=== PATIENT | male | born 1960 | race Caucasian/White ===

== ENCOUNTER 2017-12-13 11:52 | Inpatient (IN) ==
[2017-12-13] MEDS ORDERED: Naloxone 0.4 MG/ML INJ IVP PRN (15:07)
--- NOTE | 2017-12-13 15:33 | Internal Med History&Physical ---
<Cammy Thompson - Last Filed: 12/13/17 16:50> Date of Encounter: 12/13/17 Time of Encounter: 15:22 Internal Medicine - H&P: HPI Chief complaint: Left knee pain Admitted From: Hospital to Hospital Transfer (Patient is from [facility]) Plans for Post Hospital Care: Home History of present illness: Mr. Duran is a 57 year old male with history of HTN, lymphadema, COPD, A-fib , obesity, MART, asthma, DJD and enlarged prostate. Patient is here from [facility]. He reports that he has been inpatient at [facility] since Sunday. Apparently on that day he could not get up, so he pressed his life alert button , who sent help for him. He was taken to the ED there and was evaluated for a ? left infected knee. He indicated that he was receiving treatment but decided it would be best for him to come to [place] because many of his providers are here. The heart rate sounds are regular, but will get a baseline ekg. The patient takes coumadin for AFIb, INR was 1.4 today. CBC and BMP ordered at this time. Apparently the patient's knee was aspirated for fluid yesterday. The patient indicated that this procedure relieved a lot of pressure. Spoke with Dr. Fay who was on the nursing unit. Reviewed the old records. Plan for ESR and CRP at this time, while waiting for Left knee asppiration results. Will continue iv rocephin and vancomycin as ordered at [facility]. Last wbc count was 6.3, hgb 10.9, na 140, k was 3.9. I did note that the patient's lactic was slightly elevated at [facility], which was resolved. Past Med Surg Social Fam HX - Past Medical History Medical history: arthritis, atrial fibrillation, COPD, diabetes, hyperlipidemia , hypertension, migraine, renal disease, venous stasis, other Additional medical history: end stage DJD Psychiatric history: anxiety, depression - Past Surgical History Surgical History: non-contributory, appendectomy, cataract, cholecystectomy, knee replacement Additional surgical history: Bilateral knee replacements, L elbow, L shoulder - Social History Smoking Status: Former smoker Smokeless Tobacco Status: No Alcohol use: none, rarely Drug use: none - Family History Mother Adopted: No Family Member Ethnicity: Non- Living Status: Hx Family Cardiac Disorders: Yes Hx Family Respiratory Disorders: No Hx Family Cancer: Yes Hx Family GI Disorders: No Hx Family Endocrine Disorder: No Hx Family Neuromuscular Disorders: No Hx Family Neurologic Disorders: No Hx Family HEENT Disorders: No Hx Family Autoimmune Disorders: Yes Father Family Member Ethnicity: Non- Living Status: Still Living Hx Family Cardiac Disorders: No Hx Family Respiratory Disorders: No Hx Family Cancer: No Hx Family GI Disorders: No Hx Family Endocrine Disorder: No Hx Family Neuromuscular Disorders: No Hx Family Neurologic Disorders: Yes Hx Family HEENT Disorders: No Hx Family Autoimmune Disorders: No Internal Medicine - H&P: Meds Allopurinol [Zyloprim 300 MG] 300 mg PO DAILY 01/10/16 [History] Spironolactone [Aldactone] 50 mg PO DAILY 01/10/16 [History] Acetaminophen [Acetaminophen ER] 1,300 mg PO DAILY PRN 12/13/17 [History] Budesonide/Formoterol 160/4.5 [Symbicort 160/4.5] 2 puff IH BIDR 12/13/17 [ History] Buspirone HCl [Buspar] 15 mg PO BID 12/13/17 [History] Clotrimazole 1% CRM [Lotrimin 1%] 1 appl TP BID 12/13/17 [History] Docusate [Colace] 100 mg PO DAILY 12/13/17 [History] EPINEPHrine [Epipen] 0.3 mg IJ ONCE PRN 12/13/17 [History] Fluticasone Propionate Nasal [Flonase] 1 spray NS DAILY 12/13/17 [History] Furosemide [Lasix] 20 mg PO DAILY 12/13/17 [History] Gabapentin [Neurontin] 300 mg PO BID 12/13/17 [History] Loratadine [Allergy Relief] 10 mg PO DAILY 12/13/17 [History] Losartan/Hydrochlorothiazide [Losartan-Hctz 100-12.5 mg Tab] 1 tab PO DAILY [History] Montelukast [Singulair] 10 mg PO HS 12/13/17 [History] Ondansetron ODT [Zofran ODT] 4 mg SL Q6HR PRN 12/13/17 [History] Polyethylene Glycol 3350 [MiraLAX bowel prep] 17 g PO BID 12/13/17 [History] Pramipexole [Mirapex] 0.25 mg PO DAILY 12/13/17 [History] Tamsulosin [Flomax] 0.4 mg PO DAILY 12/13/17 [History] Warfarin [Coumadin] 6 mg PO MOTUWETHFR 12/13/17 [History] Warfarin [Coumadin] 7.5 mg PO SUSA 12/13/17 [History] 3 Allergy/AdvReac Type Severity Reaction Status Date / Time No Known Allergies Allergy Verified 01/10/16 08:18 All Systems PM: A 10-system review of systems was performed and is negative for pertinent findings except as documented above in the HPI. - Constitutional Constitutional: no chills, no fever(s), no night sweats - EENT Eyes: no change in vision, no discharge, no pain, no photophobia Ears: no ear discharge, no ear pain, no tinnitus Nose, mouth and throat: no dysphagia, no nasal discharge, no neck pain, no sore throat - Cardiovascular Cardiovascular ROS IM: no chest pain, no diaphoresis, no dyspnea, no lightheadedness, no palpitations, no syncope - Respiratory Respiratory: no cough, no dyspnea, no wheezing, no excessive phlegm production - Gastrointestinal Gastrointestinal: no abdominal pain, no diarrhea, no hematemesis, no hematochezia, no melena, no nausea, no vomiting - Musculoskeletal Musculoskeletal ROS IM: limited range of motion (left lower ext-Patient uses a rolling walker), no numbness, no tingling - Integumentary Integumentary IM: erythema, other (Non-healing left knee wound), no rash, no unusual bruising - Neurological Neurological ROS: no confusion, no convulsions, no focal weakness, no numbness, no tingling, no tremor(s) - Hematologic/Lymphatic Hematologic/Lymphatic: no easy bruising - Constitutional Vitals: Temp Pulse Resp BP Pulse Ox 99.5 F 70 16 113/70 95 12/13/17 13:52 12/13/17 13:52 12/13/17 13:52 12/13/17 13:52 12/13/17 13:52 General appearance: Present: A&O X 3, answers questions appropriately - Head Head exam: Present: atraumatic, normocephalic - Eye Eye exam: Present: PERRL, conjuntiva pink, sclera anicteric Pupils: Present: PERRL - Neck Neck exam general surgery: Present: supple, trachea midline. Absent: lymphadenopathy - Respiratory Respiratory exam: Present: decreased breath sounds. Absent: accessory muscle use, rales, rhonchi, wheezes - Cardiovascular Cardiovascular exam: Present: RRR, +S1, +S2. Absent: diastolic murmur, gallop, rubs, systolic murmur - GI/Abdominal GI/Abdominal exam: Present: normal bowel sounds, soft, no peritoneal signs. Absent: distended, tenderness - Extremities Exam Extremities exam: Present: joint swelling (left knee), pedal edema, tenderness, warm, radial pulses palpable and symmetrical. Absent: calf tenderness, cyanotic - Neurological Exam Neurological exam: Present: CN II-XII intact, oriented X3, no focal deficits. Absent: pronater drift, facial droop, speech deficit - Skin Skin exam: Present: dry, intact Internal Med - H&P Results - Labs CBC & Chem 7: 12/13/17 15:51 12/13/17 15:51 - Assessment and plan (1) Infection of left knee Current Visit: Yes Status: Suspected Assessment and plan: Suspected left knee infection. Dr Fay consulted and here to see the patient. Will continue iv rocephin and iv vanco as ordered at [facility]. CRP and ESR Monitor daily cbc and bmp (2) Lymphedema Current Visit: Yes Status: Chronic Assessment and plan: Poor mobility due to lymphedema will order PT/OT consult (3) HTN (hypertension) Current Visit: Yes Status: Chronic Assessment and plan: Bp is controlled Continue home bp medications Qualifiers: Hypertension type: essential hypertension Qualified Code(s): I10 - Essential (primary) hypertension (4) Morbid obesity Current Visit: No Status: Chronic Assessment and plan: nutrition consult Daily weight Monitor daily labs (5) A-fib Current Visit: No Status: Chronic Assessment and plan: Waiting for 12 lead EKG results Coumadin daily Daily INR Qualifiers: Atrial fibrillation type: paroxysmal Qualified Code(s): I48.0 - Paroxysmal atrial fibrillation - Time Spent With Patient Total time spent is greater than 50% in coordination of care (as documented) at patient's floor/unit and/or counseling patient: 25 - 35 minutes <Lupsi Webb - Last Filed: 12/13/17 17:46> Date of Encounter: 12/13/17 Time of Encounter: 15:25 Internal Medicine - H&P: HPI History of present illness: Mr. Duran is a 57 year old male All Systems PM: A 10-system review of systems was performed and is negative for pertinent findings except as documented above in the HPI. - Constitutional Vitals: Temp Pulse Resp BP Pulse Ox 99.5 F 70 16 113/70 95 12/13/17 13:52 12/13/17 13:52 12/13/17 13:52 12/13/17 13:52 12/13/17 13:52 Internal Med - H&P Results - Labs CBC & Chem 7: 12/13/17 15:51 12/13/17 15:51 Labs: Short CBC 12/13/17 Range/Units 15:51 WBC 6.6 (4.3-11.1) K/mcL Hgb 11.3 L (12.9-16.9) g/dL Hct 33.8 L (37.5-50.1) % Plt Count 194 (140-400) K/mcL Neutrophils # 4.5 (1.6-8.9) K/mcL BMP 12/13/17 15:51 Sodium 136 Potassium 4.2 Chloride 104 Carbon Dioxide 25 BUN 13 Creatinine 0.94 Glucose 105 Calcium 8.6 - Impressions ITS Impressions Knee X-Ray 12/13/17 16:20 IMPRESSION: No acute abnormality. D/ / 12/13/2017 17:30:53 Cliff Galvin MD / [facility] Interpreting Provider: Cliff Galvin MD - Attending Attestation I examined this patient and my medical decision-making was reviewed with the Nurse Practitioner, Cammy Thompson. I agree with the documented findings, disposition and treatment plan as described with any changes as documented below. 57-year-old male patient with prior bilateral total knee arthroplasty was sent over from [facility] [place] for post possible left knee septic arthritis. He had been admitted there with pain and swelling involving his left knee. This symptom has been going on intermittently since his surgery. He denies any fevers or chills. He did have arthrocentesis done over there and cell count showed around 130K WBC with neutrophil predominance. Gram stain was negative. Cultures are pending. On examination, patient is awake and alert. In mild distress. Does have increased warmth and swelling over the left knee. No erythema visible. Left knee is more swollen compared to the right. Heart rate is normal. Breath sounds are normal. Regular rhythm. Possible left knee septic arthritis: Continue IV antibiotics. Check ESR CRP. Consult orthopedics and follow recommendations. Essential hypertension: Monitor blood pressure. Continue home medications. Atrial fibrillation: In sinus rhythm currently. On Coumadin for anticoagulation. INR is subtherapeutic. Continue Coumadin. - Assessment and plan (1) Infection of left knee Current Visit: Yes Status: Suspected (2) HTN (hypertension) Current Visit: Yes Status: Chronic Qualifiers: Hypertension type: essential hypertension Qualified Code(s): I10 - Essential (primary) hypertension (3) A-fib Current Visit: No Status: Chronic Qualifiers: Atrial fibrillation type: paroxysmal Qualified Code(s): I48.0 - Paroxysmal atrial fibrillation (4) Morbid obesity Current Visit: No Status: Chronic - Time Spent With Patient Total time spent is greater than 50% in coordination of care (as documented) at patient's floor/unit and/or counseling patient:
[2017-12-13 16:10] LABS: Basophils % 0.5 %; Eosinophils # 0.2 K/mcL (0.0-0.6); Eosinophils % 2.6 %; Hematocrit 33.8 % (37.5-50.1); Hemoglobin 11.3 g/dL (12.9-16.9); Immature Granulocytes % 2.6 % (0-4); Lymphocytes # 1.3 K/mcL (0.6-4.6); Lymphocytes % 19.5 %; Mean Corpuscular HGB Conc 33.4 g/dL (31.6-35.5); Mean Corpuscular Hemoglobin 28.4 pg (28.0-33.3); Mean Corpuscular Volume 84.9 fL (83.0-100.0); Mean Platelet Volume 9.8 fL (9.4-12.4); Monocytes # 0.5 K/mcL (0.0-1.3); Neutrophils # 4.5 K/mcL (1.6-8.9); Platelet Count 194 K/mcL (140-400); Red Blood Count 3.98 M/mcL (4.19-5.50); Red Cell Distribution Width 15.1 % (11.5-14.5); Segmented Neutrophils % 67.8 %
--- NOTE | 2017-12-13 16:25 | Orthopedic Consult Note ---
Date of Encounter: 12/13/17 Time of Encounter: 16:22 History of Present Illness HPI: Mr. Duran is a 57 year old male Status post revision left total knee in 2015. Patient had been seen in my office or Dr. Duran for knee pain had a workup that included a bone scan which was negative for infection and negative for loosening in July 2017. Patient was seen earlier this week in another hospital admitted for possible knee infection. The other facility aspirated the knee the Gram stain was consistent with white cells but no bacteria. 24 hours showed no growth to date in cultures. Patient reports a problem in the back of his knee which was seen in the ER and was told he had a superficial infection there. On exam the patient is morbidly obese Alert and oriented 3 Left lower extremity Well-healed incision Some swelling No erythema We had a long discussion with regards to what has transpired since he saw Dr. Duran, and Dr. Duran's results of negative bone scan. We also reviewed that the aspiration was negative for bacteria on Gram stain and there has been no growth to date. Since the aspiration the patient has been on vancomycin and Rocephin at the other facility. An aspiration at this time would be noncontributory due to the IV antibiotic intervention. We will continue to monitor the results of the cultures at the other facility and make a plan based on these results. We will also order a new x-ray and compare them to his x- rays earlier this year as well as an ESR and CRP. I reviewed this plan and answered all his questions. Past Med Surg Social Fam HX - Past Medical History Medical history: arthritis, atrial fibrillation, COPD, diabetes, hyperlipidemia , hypertension, migraine, renal disease, venous stasis, other Additional medical history: end stage DJD Psychiatric history: anxiety, depression - Past Surgical History Surgical History: non-contributory, appendectomy, cataract, cholecystectomy, knee replacement Additional surgical history: Bilateral knee replacements, L elbow, L shoulder - Social History Smoking Status: Former smoker Smokeless Tobacco Status: No Alcohol use: none, rarely Drug use: none - Family History Mother Adopted: No Family Member Ethnicity: Non- Living Status: Hx Family Cardiac Disorders: Yes Hx Family Respiratory Disorders: No Hx Family Cancer: Yes Hx Family GI Disorders: No Hx Family Endocrine Disorder: No Hx Family Neuromuscular Disorders: No Hx Family Neurologic Disorders: No Hx Family HEENT Disorders: No Hx Family Autoimmune Disorders: Yes Father Family Member Ethnicity: Non- Living Status: Still Living Hx Family Cardiac Disorders: No Hx Family Respiratory Disorders: No Hx Family Cancer: No Hx Family GI Disorders: No Hx Family Endocrine Disorder: No Hx Family Neuromuscular Disorders: No Hx Family Neurologic Disorders: Yes Hx Family HEENT Disorders: No Hx Family Autoimmune Disorders: No Medications and Allergies Allopurinol [Zyloprim 300 MG] 300 mg PO DAILY 01/10/16 [History] Spironolactone [Aldactone] 50 mg PO DAILY 01/10/16 [History] Acetaminophen [Acetaminophen ER] 1,300 mg PO DAILY PRN 12/13/17 [History] Budesonide/Formoterol 160/4.5 [Symbicort 160/4.5] 2 puff IH BIDR 12/13/17 [ History] Buspirone HCl [Buspar] 15 mg PO BID 12/13/17 [History] Clotrimazole 1% CRM [Lotrimin 1%] 1 appl TP BID 12/13/17 [History] Docusate [Colace] 100 mg PO DAILY 12/13/17 [History] EPINEPHrine [Epipen] 0.3 mg IJ ONCE PRN 12/13/17 [History] Fluticasone Propionate Nasal [Flonase] 1 spray NS DAILY 12/13/17 [History] Furosemide [Lasix] 20 mg PO DAILY 12/13/17 [History] Gabapentin [Neurontin] 300 mg PO BID 12/13/17 [History] Loratadine [Allergy Relief] 10 mg PO DAILY 12/13/17 [History] Losartan/Hydrochlorothiazide [Losartan-Hctz 100-12.5 mg Tab] 1 tab PO DAILY [History] Montelukast [Singulair] 10 mg PO HS 12/13/17 [History] Ondansetron ODT [Zofran ODT] 4 mg SL Q6HR PRN 12/13/17 [History] Polyethylene Glycol 3350 [MiraLAX bowel prep] 17 g PO BID 12/13/17 [History] Pramipexole [Mirapex] 0.25 mg PO DAILY 12/13/17 [History] Tamsulosin [Flomax] 0.4 mg PO DAILY 12/13/17 [History] Warfarin [Coumadin] 6 mg PO MOTUWETHFR 12/13/17 [History] Warfarin [Coumadin] 7.5 mg PO SUSA 12/13/17 [History] 3 Allergy/AdvReac Type Severity Reaction Status Date / Time No Known Allergies Allergy Verified 01/10/16 08:18 All Systems Reviewed: The remainder of the systems were reviewed and are negative Physical Exam - Constitutional Vitals: Temp Pulse Resp BP Pulse Ox 99.5 F 70 16 113/70 95 12/13/17 13:52 12/13/17 13:52 12/13/17 13:52 12/13/17 13:52 12/13/17 13:52 Results - Labs Result Diagrams: 12/13/17 15:51 Labs: Abnormal lab results RBC 3.98 M/mcL (4.19-5.50) L 12/13/17 15:51 Hgb 11.3 g/dL (12.9-16.9) L 12/13/17 15:51 Hct 33.8 % (37.5-50.1) L 12/13/17 15:51 RDW 15.1 % (11.5-14.5) H 12/13/17 15:51 H & H 12/13/17 Range/Units 15:51 Hgb 11.3 L (12.9-16.9) g/dL Hct 33.8 L (37.5-50.1) % All other labs normal. Consult Discharge Plan - Plan Referrals: NONE,PCP [Primary Care Provider] -
[2017-12-13 16:31] LABS: BUN/Creatinine Ratio 14 (6-26); Blood Urea Nitrogen 13 mg/dL (6-20); Calcium 8.6 mg/dL (8.6-10.3); Carbon Dioxide 25 mEq/L (23-29); Chloride 104 mEq/L (98-107); Glucose 105 mg/dL (70-105); Osmolality,Calculated 282 (280-300); Potassium 4.2 mEq/L (3.5-5.1); Sodium 136 mEq/L (136-145); eGFR For African Americans > 60 (> 60); eGFR For Non-African Americans > 60 (> 60)
[2017-12-13 16:44] LABS: C-Reactive Protein 225 mg/L (Less than 10)
[2017-12-13] MEDS ORDERED: Ondansetron ODT 4 MG TAB.RAPDIS SL PRN (16:45)
[2017-12-13] MEDS ORDERED: ACETAMINOPHEN 1300 MG PO PRN (16:45)
[2017-12-13] MEDS ORDERED: Vancomycin 1 EACH in 0.9 % Sodium Chloride 250 ML IVPB SCH (17:00)
[2017-12-13 18:04] LABS: Vancomycin,Random 14 mcg/mL
[2017-12-13] MEDS: *HR* Warfarin 3 MG TABLET PO SCH (18:15)
[2017-12-13] MEDS: Budesonide/Formoterol 160/4.5 MDI IH SCH (20:14)
[2017-12-13] MEDS: Gabapentin 300 MG CAPSULE PO SCH (20:48)
[2017-12-13] MEDS: Clotrimazole 1% CRM 15 GM TUBE TP SCH (20:49)
[2017-12-13] MEDS: Benzonatate 100 MG CAPSULE PO PRN (23:11)
[2017-12-14 01:23] LABS: Basophils % 0.5 %; Eosinophils # 0.2 K/mcL (0.0-0.6); Eosinophils % 3.5 %; Hematocrit 33.2 % (37.5-50.1); Immature Granulocytes % 3.7 % (0-4); Lymphocytes # 1.2 K/mcL (0.6-4.6); Lymphocytes % 20.2 %; Mean Corpuscular HGB Conc 33.1 g/dL (31.6-35.5); Mean Corpuscular Hemoglobin 28.2 pg (28.0-33.3); Mean Corpuscular Volume 85.1 fL (83.0-100.0); Mean Platelet Volume 9.7 fL (9.4-12.4); Monocytes # 0.4 K/mcL (0.0-1.3); Monocytes % 6.3 %; Platelet Count 196 K/mcL (140-400); Red Cell Distribution Width 15.1 % (11.5-14.5); Segmented Neutrophils % 65.8 %
[2017-12-14 01:32] LABS: Prothrombin Time 22.9 Seconds (9.4-12.1)
[2017-12-14 01:40] LABS: BUN/Creatinine Ratio 15 (6-26); Blood Urea Nitrogen 15 mg/dL (6-20); Calcium 8.7 mg/dL (8.6-10.3); Carbon Dioxide 24 mEq/L (23-29); Chloride 104 mEq/L (98-107); Glucose 131 mg/dL (70-105); Osmolality,Calculated 285 (280-300); Potassium 4.3 mEq/L (3.5-5.1); Sodium 136 mEq/L (136-145); eGFR For African Americans > 60 (> 60); eGFR For Non-African Americans > 60 (> 60)
[2017-12-14 01:42] LABS: Platelet Estimate Normal (Normal); Reactive Lymphocytes Present (Not Present)
--- NOTE | 2017-12-14 06:43 | Orthopedics Progress Note ---
Date of Encounter: 12/14/17 Time of Encounter: 06:41 Subjective Interval history: Patient seen this morning lab values reviewed patient is significantly elevated ESR and CRP. This is concerning for infection. On exam the patient is doing much better reports significant less discomfort patient is able to actively move the knee without pain. Physical exam shows no erythema no significant change and swelling. Based on the patient's overall situation, we will wait for cultures to result to identify there is a infected left total knee. Recommendation is to continue IV antibiotics until cultures result if patient continues to improve his significant medical comorbidities and the fact that this would be a secondary revision ideally situation would be to treat this nonoperatively. Objective Vital signs: Vital Signs Temp Pulse Resp BP Pulse Ox 12/14/17 06:32 98.2 F 129 18 120/74 93 12/14/17 04:04 98.2 F 93 16 130/82 95 12/13/17 22:35 98.7 F 66 18 121/62 95 12/13/17 21:20 98 12/13/17 20:15 16 96 12/13/17 19:21 99.5 F 72 18 128/78 98 12/13/17 13:52 99.5 F 70 16 113/70 95 Intake and Output 12/13/17 12/13/17 12/14/17 15:59 23:59 07:59 Intake Total 0 / 0 1280 / 1280 150 / 150 Output Total 400 / 400 0 / 0 575 / 575 Balance -400 / -400 1280 / 1280 -425 / -425 Intake: IV Fluids 500 / 500 Vancocin 1,750 MG In 0.9 % 500 / 500 Sodium Chloride 500 ML @ 333.3 mls/hr IVPB Q12H [facility]ANTAL Rx#: [id number] Oral 0 / 0 780 / 780 150 / 150 Output: Urine 400 / 400 0 / 0 575 / 575 Other: Meal Dinner Percent of Meal Consumed 100% # Voids 1 Weight 183.5 kg 179.5 kg Blood Glucose* 91 Patient Weight 12/14/17 23:59 Weight 179.5 kg - Labs CBC & BMP: 12/14/17 00:54 12/14/17 00:54 Labs: Abnormal lab results RBC 3.90 M/mcL (4.19-5.50) L 12/14/17 00:54 Hgb 11.0 g/dL (12.9-16.9) L 12/14/17 00:54 Hct 33.2 % (37.5-50.1) L 12/14/17 00:54 RDW 15.1 % (11.5-14.5) H 12/14/17 00:54 Reactive Lymphocytes Present (Not Present) A 12/14/17 00:54 ESR >= 130 mm/hr (0-10) H 12/13/17 15:51 PT 22.9 Seconds (9.4-12.1) H 12/14/17 00:54 Glucose 131 mg/dL (70-105) H 12/14/17 00:54 C-Reactive Protein 225 mg/L (Less than 10) H 12/13/17 15:51 Consult Discharge Plan - Plan Referrals: NONE,PCP [Primary Care Provider] -
[2017-12-14] MEDS: Budesonide/Formoterol 160/4.5 MDI IH SCH ×2 (07:40→20:30)
[2017-12-14] MEDS: hydroCHLOROthiazide 25 MG TABLET PO SCH (08:18)
[2017-12-14] MEDS: Gabapentin 300 MG CAPSULE PO SCH ×2 (08:18→20:20)
[2017-12-14] MEDS: Furosemide 20 MG TABLET PO SCH (08:18)
[2017-12-14] MEDS: Loratadine 10 MG TABLET PO SCH (08:18)
[2017-12-14] MEDS: Fluticasone Propionate Nasal 50 MCG/SPRAY BOTTLE NS SCH (08:19)
[2017-12-14] MEDS: Clotrimazole 1% CRM 15 GM TUBE TP SCH ×2 (08:19→20:20)
[2017-12-14] MEDS: cefTRIAXone 2,000 MG in Water for inj. (sterile) 20 ML 20 ML IVP SCH (08:20)
[2017-12-14] MEDS ORDERED: NON-FORMULARY MEDICATION 1 EACH EACH (Losartan/Hydrochlorothiazide [Losartan-Hctz 100-12.5 PO SCH (09:00)
--- NOTE | 2017-12-14 09:30 | Internal Med Progress Note ---
Date of Encounter: 12/14/17 Time of Encounter: 09:27 - Assessment and plan (1) Infection of left knee Current Visit: Yes Status: Acute Assessment and plan: Still with significant pain with ambulation. Orthopedics consulted; appreciate input. No plan for surgery at this time. Continue IV vancomycin, dosed by pharmacy, and IV rocephin. Follow up on final cultures. PT/OT consulted. (2) Morbid obesity Current Visit: Yes Status: Chronic Assessment and plan: Counselled on lifestyle modifications. (3) A-fib Current Visit: Yes Status: Chronic Assessment and plan: Continue home medications. Qualifiers: Atrial fibrillation type: paroxysmal Qualified Code(s): I48.0 - Paroxysmal atrial fibrillation (4) HTN (hypertension) Current Visit: Yes Status: Chronic Assessment and plan: Continue home medications. Qualifiers: Hypertension type: essential hypertension Qualified Code(s): I10 - Essential (primary) hypertension (5) DVT prophylaxis Current Visit: Yes Status: Acute Assessment and plan: Continue home coumadin managed by pharmacy. - Time Spent With Patient Total time spent is greater than 50% in coordination of care (as documented) at patient's floor/unit and/or counseling patient: less than 15 minutes - Subjective Interval history: Patient had no acute events overnight. He is sitting up in chair today working with PT/OT. He states that he is having pain in left knee while ambulating. He denies fever, chills, chest pain, SOB, nausea, vomiting, or abdominal pain. He has no other complaints at this time. - Constitutional Vitals: Temp Pulse Resp BP Pulse Ox 98.2 F 129 20 120/74 94 12/14/17 06:32 12/14/17 06:32 12/14/17 07:40 12/14/17 06:32 12/14/17 07:40 General appearance: Present: cooperative, A&O X 3, morbidly obese, pleasant, no acute distress, answers questions appropriately - Respiratory Respiratory exam: Present: CTAB. Absent: accessory muscle use, rales, rhonchi, wheezes Additional comments: Normal WOB - Cardiovascular Cardiovascular exam: Present: RRR, +S1, +S2. Absent: diastolic murmur, gallop, rubs, systolic murmur Additional comments: Trace L knee edema, otherwise no BLE edema - GI/Abdominal GI/Abdominal exam: Present: normal bowel sounds, soft. Absent: distended, hepatomegaly, mass, splenomegaly, tenderness - Extremities Exam Additional comments: Left knee with trace edema, no erythema, no warmth, no TTP, surgical scar present; left knee with no edema, no erythema, no TTP, surgical scar present - Psychiatric Psychiatric exam: Present: normal affect, normal mood. Absent: agitated, anxious, depressed - Skin Skin exam: Present: dry, intact, warm. Absent: cyanosis, rash Internal Medicine: Result - Labs CBC & Chem 7: 12/14/17 00:54 12/14/17 00:54 Labs: Short CBC 12/13/17 12/14/17 Range/Units 15:51 00:54 WBC 6.6 6.0 (4.3-11.1) K/mcL Hgb 11.3 L 11.0 L (12.9-16.9) g/dL Hct 33.8 L 33.2 L (37.5-50.1) % Plt Count 194 196 (140-400) K/mcL Neutrophils # 4.5 4.0 (1.6-8.9) K/mcL BMP 12/13/17 12/14/17 15:51 00:54 Sodium 136 136 Potassium 4.2 4.3 Chloride 104 104 Carbon Dioxide 25 24 BUN 13 15 Creatinine 0.94 1.01 Glucose 105 131 H Calcium 8.6 8.7 - ABG Interpretation ABG results: PT/INR, D-dimer PT 22.9 Seconds (9.4-12.1) H 12/14/17 00:54 - Impressions Impressions Knee X-Ray 12/13/17 16:20 IMPRESSION: No acute abnormality. D/ / 12/13/2017 17:30:53 Cliff Galvin MD / [facility] Interpreting Provider: Cliff Galvin MD Consult Discharge Plan - Plan Referrals: NONE,PCP [Primary Care Provider] -
[2017-12-14] MEDS: Benzonatate 100 MG CAPSULE PO PRN ×2 (09:47→20:27)
--- NOTE | 2017-12-14 11:53 | Event Note ---
Date of Encounter: 12/14/17 Time of Encounter: 11:50 Final culture results from outside facility reviewed: NO GROWTH Plan: Continue IV antibiotics while in the hospital, patient continues to improve. Per - Due to significant medical comorbidities and the fact that this would be a secondary revision, ideally situation would be to treat this nonoperatively May require prolonged course of IV antibiotics and monitoring of CRP/ESR weekly for resolution of cellulitis. Follow up appt scheduled for next week and the following week. Appts faxed to [facility]
[2017-12-14] MEDS: *HR* OxyCODONE Immed Rel 5 MG TABLET PO PRN (13:03)
--- NOTE | 2017-12-14 15:46 | Electrocardiograph Report ---
[address] [address] Test Date: 2017-12-13 Pat Name: Francisco Duran Department: 114 Room: [facility] Gender: M First Officer: AT : 1960 Requested By: Cammy Thompson Order Number: [id number] Reading MD: Devyn Thornton Measurements Intervals [place] Rate: 70 P: 18 ME: 172 QRS: -19 QRSD: 108 T: 44 QT: 374 QTc: 395 Interpretive Statements SINUS RHYTHM Electronically Signed On 12-14-2017 15:44:43 EDT by Devyn Thornton
[2017-12-14] MEDS: *HR* Warfarin 3 MG TABLET PO SCH (16:57)
[2017-12-14] MEDS ORDERED: Warfarin perPT PO PRN (18:00)
[2017-12-15 01:17] LABS: Hematocrit 34.2 % (37.5-50.1); Hemoglobin 11.3 g/dL (12.9-16.9); Mean Corpuscular Hemoglobin 28.3 pg (28.0-33.3); Mean Corpuscular Volume 85.5 fL (83.0-100.0); Mean Platelet Volume 9.7 fL (9.4-12.4); Platelet Count 225 K/mcL (140-400)
[2017-12-15 01:24] LABS: INR 2.5; Prothrombin Time 28.3 Seconds (9.4-12.1)
[2017-12-15 01:33] LABS: BUN/Creatinine Ratio 20 (6-26); Blood Urea Nitrogen 18 mg/dL (6-20); Calcium 9.2 mg/dL (8.6-10.3); Carbon Dioxide 22 mEq/L (23-29); Chloride 102 mEq/L (98-107); Glucose 146 mg/dL (70-105); Osmolality,Calculated 283 (280-300); Potassium 3.9 mEq/L (3.5-5.1); Sodium 134 mEq/L (136-145); eGFR For African Americans > 60 (> 60); eGFR For Non-African Americans > 60 (> 60)
[2017-12-15 01:44] LABS: Eosinophils # 0.2 K/mcL (0.0-0.6); Lymphocytes # 1.9 K/mcL (0.6-4.6); Monocytes # 0.3 K/mcL (0.0-1.3); Neutrophils # 5.4 K/mcL (1.6-8.9)
[2017-12-15 01:45] LABS: Platelet Estimate Normal (Normal)
[2017-12-15] MEDS: *HR* OxyCODONE Immed Rel 5 MG TABLET PO PRN (02:24)
[2017-12-15] MEDS: Budesonide/Formoterol 160/4.5 MDI IH SCH ×2 (08:11→20:44)
[2017-12-15] MEDS: Loratadine 10 MG TABLET PO SCH (08:57)
[2017-12-15] MEDS: Gabapentin 300 MG CAPSULE PO SCH ×2 (08:57→20:17)
[2017-12-15] MEDS: cefTRIAXone 2,000 MG in Water for inj. (sterile) 20 ML 20 ML IVP SCH (08:58)
[2017-12-15] MEDS: Furosemide 20 MG TABLET PO SCH (08:58)
[2017-12-15] MEDS: hydroCHLOROthiazide 25 MG TABLET PO SCH (08:59)
[2017-12-15] MEDS: Clotrimazole 1% CRM 15 GM TUBE TP SCH ×2 (09:13→20:19)
[2017-12-15] MEDS: Fluticasone Propionate Nasal 50 MCG/SPRAY BOTTLE NS SCH (09:35)
--- NOTE | 2017-12-15 09:46 | Internal Med Progress Note ---
Date of Encounter: 12/15/17 Time of Encounter: 09:44 - Assessment and plan (1) Infection of left knee Current Visit: Yes Status: Acute Assessment and plan: He still has pain/stiffness of knee, minimally improved. Joint aspiration culture negative from OSH. Orthopedics consulted; appreciate input. They feel this is likely cellulitis. They recommend course of IV antibiotics and ESR/CRP monitoring. He will likely need an extended course of IV antibiotics after discharge. I have consulted ID and SW to help set this up. He wants to go to acute inpatient rehab. PT/OT recommend rehab. Continue IV vancomycin, dosed by pharmacy, and IV rocephin. BLE dressing per wound care. (2) Morbid obesity Current Visit: Yes Status: Chronic Assessment and plan: Counselled on lifestyle modifications. (3) A-fib Current Visit: Yes Status: Chronic Assessment and plan: Continue home medications. Qualifiers: Atrial fibrillation type: paroxysmal Qualified Code(s): I48.0 - Paroxysmal atrial fibrillation (4) HTN (hypertension) Current Visit: Yes Status: Chronic Assessment and plan: Continue home medications. Qualifiers: Hypertension type: essential hypertension Qualified Code(s): I10 - Essential (primary) hypertension (5) DVT prophylaxis Current Visit: Yes Status: Acute Assessment and plan: Continue home coumadin managed by pharmacy. - Time Spent With Patient Total time spent is greater than 50% in coordination of care (as documented) at patient's floor/unit and/or counseling patient: less than 15 minutes - Subjective Interval history: Patient had no acute events overnight. He is sitting up in chair today. Pain in now controlled, but he still has some "stiffness" in left knee. He wants regular sugar, and states that he is not a diabetic. He denies fever, chills, chest pain, SOB, nausea, vomiting, or abdominal pain. He has no other complaints at this time. - Constitutional Vitals: Temp Pulse Resp BP Pulse Ox 98.1 F 61 16 107/65 96 12/15/17 06:37 12/15/17 06:37 12/15/17 06:37 12/15/17 06:37 12/15/17 09:00 General appearance: Present: cooperative, A&O X 3, morbidly obese, pleasant, no acute distress, answers questions appropriately - Respiratory Respiratory exam: Present: CTAB. Absent: accessory muscle use, rales, rhonchi, wheezes Additional comments: Normal WOB - Cardiovascular Cardiovascular exam: Present: RRR, +S1, +S2. Absent: diastolic murmur, gallop, rubs, systolic murmur Additional comments: Trace left knee edema, otherwise no BLE edema - GI/Abdominal GI/Abdominal exam: Present: normal bowel sounds, soft. Absent: distended, hepatomegaly, mass, splenomegaly, tenderness - Psychiatric Psychiatric exam: Present: normal affect, normal mood. Absent: agitated, anxious, depressed - Skin Skin exam: Present: dry, intact, warm. Absent: cyanosis Additional comments: Minimal erythema and warmth surrounding left knee Internal Medicine: Result - Labs CBC & Chem 7: 12/15/17 00:56 12/15/17 00:56 Labs: Short CBC 12/15/17 Range/Units 00:56 WBC 7.7 (4.3-11.1) K/mcL Hgb 11.3 L (12.9-16.9) g/dL Hct 34.2 L (37.5-50.1) % Plt Count 225 (140-400) K/mcL Neutrophils # 5.4 (1.6-8.9) K/mcL BMP 12/15/17 00:56 Sodium 134 L Potassium 3.9 Chloride 102 Carbon Dioxide 22 L BUN 18 Creatinine 0.89 Glucose 146 H Calcium 9.2 - ABG Interpretation ABG results: PT/INR, D-dimer PT 28.3 Seconds (9.4-12.1) H 12/15/17 00:56 Consult Discharge Plan - Plan Referrals: NONE,PCP [Primary Care Provider] -
[2017-12-15] MEDS ORDERED: *HR* Warfarin 7.5 MG TABLET PO SCH (18:00)
[2017-12-16] MEDS: *HR* OxyCODONE Immed Rel 5 MG TABLET PO PRN ×3 (00:23→19:47)
[2017-12-16 02:00] LABS: Basophils # 0.1 K/mcL (0.0-0.2); Basophils % 0.6 %; Eosinophils # 0.3 K/mcL (0.0-0.6); Eosinophils % 3.5 %; Hematocrit 34.9 % (37.5-50.1); Hemoglobin 11.7 g/dL (12.9-16.9); Immature Granulocytes % 6.6 % (0-4); Lymphocytes # 1.5 K/mcL (0.6-4.6); Lymphocytes % 18.5 %; Mean Corpuscular HGB Conc 33.5 g/dL (31.6-35.5); Mean Corpuscular Hemoglobin 29.3 pg (28.0-33.3); Mean Corpuscular Volume 87.5 fL (83.0-100.0); Mean Platelet Volume 9.6 fL (9.4-12.4); Monocytes # 0.5 K/mcL (0.0-1.3); Monocytes % 6.5 %; Neutrophils # 5.3 K/mcL (1.6-8.9); Platelet Count 280 K/mcL (140-400); Red Blood Count 3.99 M/mcL (4.19-5.50); Red Cell Distribution Width 14.9 % (11.5-14.5); Segmented Neutrophils % 64.3 %
[2017-12-16 02:11] LABS: INR 2.8; Prothrombin Time 31.3 Seconds (9.4-12.1)
[2017-12-16 02:20] LABS: BUN/Creatinine Ratio 19 (6-26); Blood Urea Nitrogen 18 mg/dL (6-20); C-Reactive Protein 83 mg/L (Less than 10); Calcium 9.1 mg/dL (8.6-10.3); Carbon Dioxide 24 mEq/L (23-29); Chloride 104 mEq/L (98-107); Glucose 123 mg/dL (70-105); Osmolality,Calculated 283 (280-300); Potassium 4.1 mEq/L (3.5-5.1); Sodium 135 mEq/L (136-145); eGFR For African Americans > 60 (> 60); eGFR For Non-African Americans > 60 (> 60)
[2017-12-16 02:21] LABS: Platelet Estimate Normal (Normal)
[2017-12-16] MEDS: Budesonide/Formoterol 160/4.5 MDI IH SCH ×2 (08:05→20:27)
[2017-12-16] MEDS: hydroCHLOROthiazide 25 MG TABLET PO SCH (08:28)
[2017-12-16] MEDS: cefTRIAXone 2,000 MG in Water for inj. (sterile) 20 ML 20 ML IVP SCH (08:35)
[2017-12-16] MEDS: Loratadine 10 MG TABLET PO SCH (08:35)
[2017-12-16] MEDS: Gabapentin 300 MG CAPSULE PO SCH ×2 (08:35→19:40)
[2017-12-16] MEDS: Clotrimazole 1% CRM 15 GM TUBE TP SCH ×2 (08:36→19:41)
[2017-12-16] MEDS: Furosemide 20 MG TABLET PO SCH (08:43)
[2017-12-16] MEDS: Fluticasone Propionate Nasal 50 MCG/SPRAY BOTTLE NS SCH (10:45)
--- NOTE | 2017-12-16 17:37 | Internal Med Progress Note ---
Date of Encounter: 12/16/17 Time of Encounter: 11:45 - Assessment and plan (1) Morbid obesity Current Visit: Yes Status: Chronic (2) A-fib Current Visit: Yes Status: Chronic Assessment and plan: Continue home medications. rate-controlled; on anticoagulation with Coumadin; Qualifiers: Atrial fibrillation type: paroxysmal Qualified Code(s): I48.0 - Paroxysmal atrial fibrillation (3) HTN (hypertension) Current Visit: Yes Status: Chronic Qualifiers: Hypertension type: essential hypertension Qualified Code(s): I10 - Essential (primary) hypertension (4) Infection of left knee Current Visit: Yes Status: Acute Assessment and plan: unclear if it is septic arthritis; arthrocentesis performed at outside facility , final wound cultures are reportedly negative. Patient has B/L total knee replacements; Orthopedics on board; to continue IV Rocephin and Vancomycin for now; elevated ESR and CRP at admission, CRP now improving; do not recommend surgical revision; pain control with PRN Percocet; ID consulted; PT/OT evaluation recommend IP rehab; pharmacy services director on board; (5) DVT prophylaxis Current Visit: Yes Status: Acute (6) BPH (benign prostatic hyperplasia) Current Visit: Yes Status: Chronic Qualifiers: Lower urinary tract symptom presence: unspecified whether lower urinary tract symptoms present Qualified Code(s): N40.0 - Benign prostatic hyperplasia without lower urinary tract symptoms (7) MART (obstructive sleep apnea) Current Visit: Yes Status: Chronic (8) Lymphedema Current Visit: Yes Status: Chronic - Time Spent With Patient Total time spent is greater than 50% in coordination of care (as documented) at patient's floor/unit and/or counseling patient: - Subjective Interval history: Feels better; requests for more narcotic pain meds although dies not seem to be in distress; reports left knee warmth and pain; s/p arthrocentesis; no fever/ chills, chest pain, dyspnea; - Constitutional Vitals: Temp Pulse Resp BP Pulse Ox 98.5 F 78 16 158/84 98 12/16/17 16:47 12/16/17 16:47 12/16/17 16:47 12/16/17 16:47 12/16/17 16:47 General appearance: Present: cooperative, A&O X 3, morbidly obese, answers questions appropriately - Respiratory Respiratory exam: Present: CTAB. Absent: accessory muscle use, rales, rhonchi, wheezes - Cardiovascular Cardiovascular exam: Present: RRR, +S1, +S2. Absent: diastolic murmur, gallop, rubs, systolic murmur - GI/Abdominal GI/Abdominal exam: Present: normal bowel sounds, soft, no peritoneal signs. Absent: distended, tenderness - Extremities Exam Extremities exam: Present: warm, radial pulses palpable and symmetrical. Absent : calf tenderness, cyanotic, pedal edema Additional comments: left knee- warmth, slightly tender, no erythema or swelling Internal Medicine: Result - Labs CBC & Chem 7: 12/16/17 01:17 12/16/17 01:17 Labs: Short CBC 12/16/17 Range/Units 01:17 WBC 8.3 (4.3-11.1) K/mcL Hgb 11.7 L (12.9-16.9) g/dL Hct 34.9 L (37.5-50.1) % Plt Count 280 (140-400) K/mcL Neutrophils # 5.3 (1.6-8.9) K/mcL BMP 12/16/17 01:17 Sodium 135 L Potassium 4.1 Chloride 104 Carbon Dioxide 24 BUN 18 Creatinine 0.96 Glucose 123 H Calcium 9.1 - ABG Interpretation ABG results: PT/INR, D-dimer PT 31.3 Seconds (9.4-12.1) H 12/16/17 01:17 Consult Discharge Plan - Plan Referrals: NONE,PCP [Primary Care Provider] -
[2017-12-16] MEDS ORDERED: *HR* Warfarin 5 MG TABLET PO ONE (18:00)
[2017-12-17 01:29] LABS: INR 2.9; Prothrombin Time 32.3 Seconds (9.4-12.1)
--- NOTE | 2017-12-17 07:30 | Internal Med Progress Note ---
Date of Encounter: 12/17/17 Time of Encounter: 07:27 - Assessment and plan (1) Infection of left knee Current Visit: Yes Status: Acute Assessment and plan: Patient states swelling and pain starting to improve. Joint aspiration culture negative from OSH. Orthopedics consulted; appreciate input. They feel this is likely cellulitis. They recommend course of IV antibiotics and ESR/CRP monitoring. He will likely need an extended course of IV antibiotics after discharge. ID consulted; appreciate input. He wants to go to acute inpatient rehab. PT/OT recommend rehab. Continue IV vancomycin, dosed by pharmacy, and IV rocephin. BLE dressing per wound care. (2) Morbid obesity Current Visit: Yes Status: Chronic Assessment and plan: Counselled on lifestyle modifications. (3) A-fib Current Visit: Yes Status: Chronic Assessment and plan: Continue home medications. Qualifiers: Atrial fibrillation type: paroxysmal Qualified Code(s): I48.0 - Paroxysmal atrial fibrillation (4) Lymphedema Current Visit: Yes Status: Chronic (5) HTN (hypertension) Current Visit: Yes Status: Chronic Assessment and plan: Continue home medications. Qualifiers: Hypertension type: essential hypertension Qualified Code(s): I10 - Essential (primary) hypertension (6) BPH (benign prostatic hyperplasia) Current Visit: Yes Status: Chronic Qualifiers: Lower urinary tract symptom presence: unspecified whether lower urinary tract symptoms present Qualified Code(s): N40.0 - Benign prostatic hyperplasia without lower urinary tract symptoms (7) MART (obstructive sleep apnea) Current Visit: Yes Status: Chronic (8) DVT prophylaxis Current Visit: Yes Status: Acute Assessment and plan: Continue home coumadin managed by pharmacy. - Time Spent With Patient Total time spent is greater than 50% in coordination of care (as documented) at patient's floor/unit and/or counseling patient: less than 15 minutes - Subjective Interval history: Patient had no acute events overnight. He is doing "good" today. He thinks that swelling of left knee is improving. He denies any knee pain. He denies fever, chills, chest pain, SOB, nausea, vomiting, or abdominal pain. He has no other complaints at this time. - Constitutional Vitals: Temp Pulse Resp BP Pulse Ox 98.6 F 64 18 151/74 96 12/17/17 06:39 12/17/17 06:39 12/17/17 06:39 12/17/17 06:39 12/17/17 06:39 General appearance: Present: cooperative, A&O X 3, morbidly obese, no acute distress, answers questions appropriately - Respiratory Respiratory exam: Present: CTAB. Absent: accessory muscle use, rales, rhonchi, wheezes Additional comments: Normal WOB - Cardiovascular Cardiovascular exam: Present: RRR, +S1, +S2. Absent: diastolic murmur, gallop, rubs, systolic murmur Additional comments: Trace left knee edema, otherwise no BLE edema - GI/Abdominal GI/Abdominal exam: Present: normal bowel sounds, soft. Absent: distended, hepatomegaly, mass, splenomegaly, tenderness - Psychiatric Psychiatric exam: Present: normal affect, normal mood. Absent: agitated, anxious, depressed - Skin Skin exam: Present: dry, intact, warm. Absent: cyanosis Additional comments: Minimal erythema and warmth surrounding left knee Internal Medicine: Result - Labs CBC & Chem 7: 12/16/17 01:17 12/16/17 01:17 - ABG Interpretation ABG results: PT/INR, D-dimer PT 32.3 Seconds (9.4-12.1) H 12/17/17 00:56 Consult Discharge Plan - Plan Referrals: NONE,PCP [Primary Care Provider] -
[2017-12-17] MEDS: Loratadine 10 MG TABLET PO SCH (07:41)
[2017-12-17] MEDS: cefTRIAXone 2,000 MG in Water for inj. (sterile) 20 ML 20 ML IVP SCH (07:41)
[2017-12-17] MEDS: Gabapentin 300 MG CAPSULE PO SCH ×2 (07:41→23:14)
[2017-12-17] MEDS: Furosemide 20 MG TABLET PO SCH (07:42)
[2017-12-17] MEDS: Fluticasone Propionate Nasal 50 MCG/SPRAY BOTTLE NS SCH (07:42)
[2017-12-17] MEDS: Clotrimazole 1% CRM 15 GM TUBE TP SCH ×2 (07:53→23:15)
--- NOTE | 2017-12-17 08:37 | Event Note ---
Date of Encounter: 12/17/17 Time of Encounter: 08:37 Wounds appear stable. No drainage noted. patient points out new site he has been picking at along his left knee incision - requested nursing cleanse and apply dressing to prevent patient from contacting site. Patient encouraged to avoid scratching or picking at the area. Verbalized understanding. Patient last saw Dr. Roach in wound care center on 12/04. Unna boot applied. Would encourage continued follow up with wound care re: lower extremities. Patient states they prescribed cream to him for itching. Will see if can figure out which cream he is referring to.
[2017-12-17] MEDS: Budesonide/Formoterol 160/4.5 MDI IH SCH ×2 (09:40→19:28)
[2017-12-17] MEDS ORDERED: Aminoglycoside Consult 1 EACH MC ONE (12:36)
--- NOTE | 2017-12-17 15:28 | Infectious Disease Consult ---
Date of Encounter: 12/17/17 Time of Encounter: 15:21 Assessment and Plan (1) SIRS (systemic inflammatory response syndrome) Status: Acute Assessment and plan: The patient had two SIRS criteria on presentation to OSH. Improved. WBC normalized. The patient has been afebrile since admission here. (2) Left knee pain Status: Acute Assessment and plan: Location: Posterior left knee. Etiology unclear: infection (prosthetic joint infection or cellulitis) vs. gout vs. other. X-ray of the left knee completed at OSH negative. Repeat x-ray here 12/13/17 negative. Status post arthrocentesis that showed >135,000 WBC with 84% segmented neutrophils. No crystals. Culture negative. Initial ESR >130, CRP 225. Repeat ESR remains >130. CRP improved to 83. Based on cell count, synovial fluid appears exudative, but culture is negative. His inflammatory markers are elevated and the patient reports improvement of symptoms with IV antibiotics. Ortho consulted and following. Does not feel that the patient's symptoms are related to an infection in the knee and do not plan on performing surgery at this point. The patient does have hardware in the knee, which puts him at increased risk for seeding of the hardware if there is an infection. Would recommend stopping antibiotics and observing. If symptoms persist/worsen, recommend repeat imaging, arthrocentesis, and obtain cultures prior to starting antibiotics. Qualifiers: Chronicity: chronic Qualified Code(s): M25.562 - Pain in left knee; G89.29 - Other chronic pain (3) Morbid obesity Status: Chronic (4) A-fib Status: Chronic Assessment and plan: Rate controlled. Management per the primary team. Qualifiers: Atrial fibrillation type: paroxysmal Qualified Code(s): I48.0 - Paroxysmal atrial fibrillation (5) HTN (hypertension) Status: Chronic Qualifiers: Hypertension type: essential hypertension Qualified Code(s): I10 - Essential (primary) hypertension (6) BPH (benign prostatic hyperplasia) Status: Chronic Qualifiers: Lower urinary tract symptom presence: unspecified whether lower urinary tract symptoms present Qualified Code(s): N40.0 - Benign prostatic hyperplasia without lower urinary tract symptoms (7) MART (obstructive sleep apnea) Status: Chronic Infectious Disease HPI - Data of Consult Patient: new to practice Consult date: 12/17/17 Requesting Physician: Lupis Webb MD Primary Care Provider: PCP NONE - Consult Narrative Reason for consult: Left knee septic arthritis History of present illness: Mr. Duran is a 57 year old male with a past medical history of hypertension, COPD, A. fib, morbid obesity, obstructive sleep apnea, asthma, degenerative joint disease, BPH, status post bilateral total knee replacements 2014 with revision of the left total knee replacement 2015. Patient was admitted to the hospital December 13 for left knee septic arthritis. We are consulted December 17 for further recommendations for left knee septic arthritis. Briefly, the patient's a 57 her old male with past medical history as stated above. The patient originally presented to an outside hospital with complaints of left knee pain, erythema, and superficial wound drainage that started about a week prior to presentation. Upon arrival there, the patient had leukocytosis and lactic acidosis. His renal function was mildly elevated. Blood cultures were obtained and were negative. He had a left knee x-ray that was negative as well. He was originally started on Rocephin and vancomycin and admitted there. He had an elevated ESR of 95. His leukocytosis resolved. Orthopedics consult and performed an arthrocentesis on December 13. Showed a TMC of 135,000 with 84% segmented neutrophils. The specimen was sent for culture which was negative. There were no crystals seen on the specimen. The patient was transferred here at his request for further orthopedic and infectious disease evaluation. Upon arrival here, the patient was afebrile hemodynamically stable. He had a repeat knee x-ray that was essentially negative. Orthopedics was consulted and did not recommend any surgical intervention at that time. Since admission here, the patient's white blood cell count has remained normal. He has remained afebrile hemodynamically stable. He has been on IV vancomycin and IV Rocephin since admission. ESR performed here after transfer was greater than 130 with a CRP of 225. Repeat ESR yesterday was greater than 130, but the CRP is improved to 83. We have been asked to evaluate and make further recommendations. During my exam today, the patient endorses a history as stated above. He reports since being on IV antibiotics his pain is improved. He reported subjective fevers and chills, but no rigors. He reports intermittent nausea with vomiting, but no abdominal pain. He denies any chest pain, shortness of breath, or cough. He states his nausea and vomiting and subjective fevers and chills have resolved. He reported the pain was originally in the posterior aspect of his left knee, but that seems to have improved as well. He states he goes to the edema wound clinic for evaluation of chronic ulcerations to the bilateral lower extremities. He reports a superficial ulceration to the left knee that was draining some yellow drainage about a week prior to the onset of his symptoms. He states he was seen in wound clinic and told that it was no big deal. He does report that he has a dog at home that licked the area of concern. He denies any oral thrush or any other new skin lesions. The patient lives at home alone. He is retired. He denies any alcohol, tobacco , or illicit drug use. He denies any prolonged exposure to water. He does have a dog at home that he states did not like the area of concern recently. He denies any other known trauma. CC: Lupis Webb MD Past Med Surg Social Fam HX - Past Medical History Attestation: Yes The following information was validated with the patient. Source: patient, old records reviewed, nursing notes reviewed Medical history: arthritis, atrial fibrillation, COPD, diabetes, hyperlipidemia , hypertension, migraine, renal disease, venous stasis, other (Gout) Additional medical history: end stage DJD Psychiatric history: anxiety, depression - Past Surgical History Surgical History: appendectomy, cataract, cholecystectomy, knee replacement ( Bilateral TKR 2014, left total knee revision 2015) Additional surgical history: Bilateral knee replacements, L elbow, L shoulder - Social History Smoking Status: Former smoker Smokeless Tobacco Status: No Alcohol use: none, rarely Drug use: none Occupational status: retired Current living situation: Home - Independent Activity Level: Independent ambulation Recent Out of Country Travel Within the Last 8 Weeks: No Exposure or Possible Exposure to Illness During Travel: No - Family History Mother Adopted: No Family Member Ethnicity: Non- Living Status: Hx Family Cardiac Disorders: Yes Hx Family Respiratory Disorders: No Hx Family Cancer: Yes Hx Family GI Disorders: No Hx Family Endocrine Disorder: No Hx Family Neuromuscular Disorders: No Hx Family Neurologic Disorders: No Hx Family HEENT Disorders: No Hx Family Autoimmune Disorders: Yes Father Family Member Ethnicity: Non- Living Status: Still Living Hx Family Cardiac Disorders: No Hx Family Respiratory Disorders: No Hx Family Cancer: No Hx Family GI Disorders: No Hx Family Endocrine Disorder: No Hx Family Neuromuscular Disorders: No Hx Family Neurologic Disorders: Yes Hx Family HEENT Disorders: No Hx Family Autoimmune Disorders: No Infectious Disease-CN:Meds Allopurinol [Zyloprim 300 MG] 300 mg PO DAILY 01/10/16 [History] Spironolactone [Aldactone] 50 mg PO DAILY 01/10/16 [History] Acetaminophen [Acetaminophen ER] 1,300 mg PO DAILY PRN 12/13/17 [History] Budesonide/Formoterol 160/4.5 [Symbicort 160/4.5] 2 puff IH BIDR 12/13/17 [ History] Buspirone HCl [Buspar] 15 mg PO BID 12/13/17 [History] Clotrimazole 1% CRM [Lotrimin 1%] 1 appl TP BID 12/13/17 [History] Docusate [Colace] 100 mg PO DAILY 12/13/17 [History] EPINEPHrine [Epipen] 0.3 mg IJ ONCE PRN 12/13/17 [History] Fluticasone Propionate Nasal [Flonase] 1 spray NS DAILY 12/13/17 [History] Furosemide [Lasix] 20 mg PO DAILY 12/13/17 [History] Gabapentin [Neurontin] 300 mg PO BID 12/13/17 [History] Loratadine [Allergy Relief] 10 mg PO DAILY 12/13/17 [History] Losartan/Hydrochlorothiazide [Losartan-Hctz 100-12.5 mg Tab] 1 tab PO DAILY [History] Montelukast [Singulair] 10 mg PO HS 12/13/17 [History] Ondansetron ODT [Zofran ODT] 4 mg SL Q6HR PRN 12/13/17 [History] Polyethylene Glycol 3350 [MiraLAX bowel prep] 17 g PO BID 12/13/17 [History] Pramipexole [Mirapex] 0.25 mg PO DAILY 12/13/17 [History] Tamsulosin [Flomax] 0.4 mg PO DAILY 12/13/17 [History] Warfarin [Coumadin] 6 mg PO MOTUWETHFR 12/13/17 [History] Warfarin [Coumadin] 7.5 mg PO SUSA 12/13/17 [History] 3 Allergy/AdvReac Type Severity Reaction Status Date / Time No Known Allergies Allergy Verified 01/10/16 08:18 All systems: reviewed and no additional remarkable complaints except as stated Exam - Constitutional Vitals: Temp Pulse Resp BP Pulse Ox 98.3 F 75 18 108/71 98 12/17/17 14:50 12/17/17 14:50 12/17/17 14:50 12/17/17 14:50 12/17/17 14:50 General appearance: cooperative, morbidly obese, no acute distress - Head Head exam: Present: atraumatic, normal inspection, normocephalic - Eye Eye exam: Present: EOMI, normal appearance, PERRL Pupils: Present: normal accommodation - ENT ENT exam: Present: mucous membranes moist - Neck Neck exam: Present: normal inspection - Respiratory Respiratory exam: Present: CTAB. Absent: rales, respiratory distress, rhonchi, wheezes - Cardiovascular Cardiovascular exam: Present: irregular rhythm. Absent: tachycardia - GI/Abdominal GI/Abdominal exam: Present: distended (obese), normal bowel sounds, soft. Absent: tenderness - Extremities Exam Additional comments: Surgical scar noted to the left anterior knee with small scabbed area noted to the middline of the scar without erythema, warmth, drainage, or fluctuance. ROM normal. No erythema, warmth, or tenderness of the joint. - Neurological Exam Neurological exam: Present: alert, oriented X3, no focal deficits - Psychiatric Psychiatric exam: Present: normal affect, normal mood - Skin Skin exam: Present: dry, intact, normal color, warm Infectious Disease CN: Results - Labs CBC & Chem 7: 12/16/17 01:17 12/16/17 01:17 Consult Discharge Plan - Plan Referrals: NONE,PCP [Primary Care Provider] - - Attending Attestation I examined this patient and my medical decision-making was reviewed with the Resident Physician. I agree with the documented findings, disposition and treatment plan as described except to the extent set forth below. This is an addendum to original report dictated by Valeria Do CNP. Please refer to [facility] for full detail. Patient is 57-year-old gentleman who has a 6 sensitive past medical history mentioned below who apparently has had bilateral total knee arthroplasties around 2015. 2016 he had a failure of the left knee due to aseptic loosening of the hardware. She had hardware changed. Patient was doing well until a few months ago when he started having knee pain. Patient was seen by orthopedics and the had a bone scan done which was nonrevealing. Patient states about a week prior to admission started having swelling pain and some drainage from his knee. He also tells me that the dog licked his wound. Patient was seen at done outside hospital where she had an arthrocentesis done and it showed significant leukocytosis over 135,000 with 84% segmented neutrophils. No crystals no cultures were positive. Patient ESR was over 1:30 and CRP will 225. Patient was started on broad-spectrum antibiotics and clinically is doing great. Patient then was evaluated by orthopedics and they thought the knee is noninfectious and recommended no surgical intervention. I did evaluate the patient in the presence of nursing staff. I explained to him that I am concerned for possible infection all the cultures came back negative. This of the best thing to do is stop all antibiotics and observe since right now I have no obvious infection on physical exam and based if his knee clinically gets worse again which we are anticipating, we want to see him again where we can do another arthrocentesis is not proper cultures aerobic and anaerobic fungal and AFB and hopefully we can get out of this is inflammatory versus infectious versus other. Patient seems to understand fully and we will go from there.
[2017-12-17] MEDS ORDERED: *HR* Warfarin 5 MG TABLET PO ONE (18:00)
[2017-12-18 01:25] LABS: Basophils # 0.1 K/mcL (0.0-0.2); Basophils % 0.7 %; Eosinophils # 0.2 K/mcL (0.0-0.6); Eosinophils % 2.5 %; Hemoglobin 12.7 g/dL (12.9-16.9); Immature Granulocytes % 5.6 % (0-4); Lymphocytes # 1.8 K/mcL (0.6-4.6); Lymphocytes % 19.8 %; Mean Corpuscular HGB Conc 33.4 g/dL (31.6-35.5); Mean Corpuscular Hemoglobin 29.1 pg (28.0-33.3); Mean Corpuscular Volume 87.2 fL (83.0-100.0); Mean Platelet Volume 9.1 fL (9.4-12.4); Monocytes # 0.5 K/mcL (0.0-1.3); Monocytes % 5.9 %; Neutrophils # 5.9 K/mcL (1.6-8.9); Platelet Count 303 K/mcL (140-400); Red Blood Count 4.36 M/mcL (4.19-5.50); Red Cell Distribution Width 14.6 % (11.5-14.5); Segmented Neutrophils % 65.5 %
[2017-12-18 01:28] LABS: INR 2.6; Prothrombin Time 29.6 Seconds (9.4-12.1)
[2017-12-18 01:44] LABS: Platelet Estimate Normal (Normal)
[2017-12-18 01:46] LABS: BUN/Creatinine Ratio 23 (6-26); Blood Urea Nitrogen 20 mg/dL (6-20); Calcium 9.4 mg/dL (8.6-10.3); Carbon Dioxide 22 mEq/L (23-29); Chloride 102 mEq/L (98-107); Glucose 130 mg/dL (70-105); Osmolality,Calculated 280 (280-300); Potassium 4.2 mEq/L (3.5-5.1); Sodium 133 mEq/L (136-145); eGFR For African Americans > 60 (> 60); eGFR For Non-African Americans > 60 (> 60)
[2017-12-18] MEDS: *HR* OxyCODONE Immed Rel 5 MG TABLET PO PRN (09:39)
[2017-12-18] MEDS: Furosemide 20 MG TABLET PO SCH (09:39)
[2017-12-18] MEDS: Loratadine 10 MG TABLET PO SCH (09:40)
[2017-12-18] MEDS: Gabapentin 300 MG CAPSULE PO SCH (09:40)
[2017-12-18] MEDS: Budesonide/Formoterol 160/4.5 MDI IH SCH (10:42)
--- NOTE | 2017-12-18 11:10 | Discharge Summary ---
Orders not resulted at time of discharge: Pending orders 12/19/17 04:00 PT/INR [Prothrombin Time INR] [COAG] AM 04012/20/17 04:00 PT/INR [Prothrombin Time INR] [COAG] AM 04012/21/17 04:00 PT/INR [Prothrombin Time INR] [[facility]AG] AM 040 Date of Encounter: 12/18/17 Time of Encounter: 11:08 - Discharge Diagnosis (1) Cellulitis of left knee Priority: Primary Status: Acute (2) PAF (paroxysmal atrial fibrillation) Priority: Secondary Status: Chronic (3) On warfarin for atrial fibrillation Priority: Secondary Status: Chronic (4) HTN (hypertension) Priority: Secondary Status: Chronic Qualifiers: Hypertension type: essential hypertension Qualified Code(s): I10 - Essential (primary) hypertension (5) COPD (chronic obstructive pulmonary disease) Priority: Secondary Status: Chronic Qualifiers: COPD type: unspecified COPD Qualified Code(s): J44.9 - Chronic obstructive pulmonary disease, unspecified (6) Morbid obesity with BMI of 60.0-69.9, adult Priority: Secondary Status: Acute (7) Morbid obesity Priority: Secondary Status: Chronic Hospital course: Mr. Duran is a 57 year old male. This patient is a transfer from [facility]. The patient did have progressing pain redness and swelling of left knee in the last a few days preceding this admission. It was some 1 day before this admission when his left knee was drained. The patient was put on IV vancomycin and IV Zosyn. Consultations were obtained from orthopedic service and ID service. A couple days after the admission we got the results of the cultures from the left knee. They did not grow any particular organisms. It was yesterday, when orthopedics and infectious diseases decided to stop the antibiotics. They feel that this patient has had chronic cellulitis of left knee; exacerbated recently. I saw this patient today morning. Redness and swelling of left knee is gone. There is some only mild pain in the joint. Denies chest pain. Denies difficulty breathing, coughing and wheezing. He is able to ambulate on his own. The pain in the left knee is worse, when standing/walking. We discharge him to extended care facility to provide him with her physical therapy. His CBC from today shows WBC count of 6.3 thousand. Discharge discussed with: patient, nurse, case management - Time Spent with Patient Total time spent providing and/or coordinating discharge services: Greater than 30 minutes (40 minutes) - Discharge Medications Home Medications: Allopurinol [Zyloprim 300 MG] 300 mg PO DAILY 01/10/16 [History] Spironolactone [Aldactone] 50 mg PO DAILY 01/10/16 [History] Acetaminophen [Acetaminophen ER] 1,300 mg PO DAILY PRN 12/13/17 [History] Budesonide/Formoterol 160/4.5 [Symbicort 160/4.5] 2 puff IH BIDR 12/13/17 [ History] Buspirone HCl [Buspar] 15 mg PO BID 12/13/17 [History] Clotrimazole 1% CRM [Lotrimin 1%] 1 appl TP BID 12/13/17 [History] Docusate [Colace] 100 mg PO DAILY 12/13/17 [History] EPINEPHrine [Epipen] 0.3 mg IJ ONCE PRN 12/13/17 [History] Fluticasone Propionate Nasal [Flonase] 1 spray NS DAILY 12/13/17 [History] Furosemide [Lasix] 20 mg PO DAILY 12/13/17 [History] Gabapentin [Neurontin] 300 mg PO BID 12/13/17 [History] Loratadine [Allergy Relief] 10 mg PO DAILY 12/13/17 [History] Losartan/Hydrochlorothiazide [Losartan-Hctz 100-12.5 mg Tab] 1 tab PO DAILY [History] Montelukast [Singulair] 10 mg PO HS 12/13/17 [History] Ondansetron ODT [Zofran ODT] 4 mg SL Q6HR PRN 12/13/17 [History] Polyethylene Glycol 3350 [MiraLAX bowel prep] 17 g PO BID 12/13/17 [History] Pramipexole [Mirapex] 0.25 mg PO DAILY 12/13/17 [History] Tamsulosin [Flomax] 0.4 mg PO DAILY 12/13/17 [History] Warfarin [Coumadin] 6 mg PO MOTUWETHFR 12/13/17 [History] Warfarin [Coumadin] 7.5 mg PO SUSA 12/13/17 [History] Allergies/Adverse Reactions: 3 Allergy/AdvReac Type Severity Reaction Status Date / Time No Known Allergies Allergy Verified 01/10/16 08:18 Date of admission: 12/16/17 17:58 Primary care physician: PCP NONE Consults: 12/13/17 16:41 PT [Consult to Physical Therapy] [CONS] Routine Comment: Evaluate, develop and implement POC Reason for Consult: Immobilty at home Does patient have active BEDREST order?: No Is patient medically & hemodynamically stable?: Yes Patient assessed for mobility or mobilized this visit?: No 12/13/17 16:42 OT [Consult to Occupational Therapy] [CONS] Routine Comment: Evaluate, develop and implement POC Reason for Consult: Poor mibilty at home Does patient have active BEDREST order?: No Is patient medically & hemodynamically stable?: Yes Patient assessed for mobility or mobilized this visit?: No 12/13/17 16:44 Consult to Nutrition [CONS] Routine Comment: Consulting Provider: NUTRITION Reason for Dietary Consult: Diet Education 12/13/17 16:56 Consult to Orthopedic Surgery [CONS] Routine Consulting Provider: Orthopedics [facility] Reason for Consult: Left knee pain, ?infection Time Notified: 16:57 Call Completed: Yes 12/14/17 09:04 Consult for Pharmacy Education [CONS] Stat Reason for Consult: Coumadin Dosing and Vancomycin Dosing Call Completed: No 12/14/17 11:51 Consult to Produce Team Lead [CONS] Routine Reason for SW Consult: Discharge planning. 12/14/17 15:26 Consult to Wound Care [CONS] Routine Reason for Consult: BLE swelling/wounds Call Completed: Yes 12/15/17 09:42 Consult to Infectious Diseases [CONS] Routine Consulting Provider: Infectious Disease [place] Reason for Consult: Left Knee Cellulitis. Please recommend course of outpatient antibiotics. Thanks. Call Completed: No 12/15/17 09:43 Consult to Case Management [CONS] Routine Comment: Acute Rehab Placement Consult to Produce Team Lead [CONS] Routine Reason for SW Consult: Acute Rehab Placement 12/15/17 09:48 Consult to Produce Team Lead [CONS] Routine Reason for SW Consult: IV antibiotics at discharge Discharging clinician: Román Bates Anticipated date of discharge: 12/18/17 - Constitutional Vitals: Temp Pulse Resp BP Pulse Ox 98.6 F 74 18 137/80 98 12/18/17 08:00 12/18/17 08:00 12/18/17 10:44 12/18/17 08:00 12/18/17 10:44 General appearance: Present: cooperative, A&O X 3, morbidly obese, no acute distress, answers questions appropriately - Respiratory Respiratory exam: Present: CTAB. Absent: accessory muscle use, rales, rhonchi, wheezes - Cardiovascular Cardiovascular exam: Present: RRR, +S1, +S2. Absent: diastolic murmur, gallop, rubs, systolic murmur - GI/Abdominal GI/Abdominal exam: Present: normal bowel sounds, soft, no peritoneal signs. Absent: distended, tenderness - Patient Status Disposition: Transfer SNF Condition: Fair Functional capacity at discharge: independent ambulation Overall status at discharge: patient is progressing back to baseline - Discharge Instructions Follow Up With: NONE,PCP [Primary Care Provider] - - Diet and Activity Activity: as per physical therapy - VTE Reasons for not Prescribing Prophylaxis: Not indicated-Anticoagulated or INR therapeutic Deep Vein Thrombosis/Pulmonary Embolism Present on Admission: No
--- NOTE | 2017-12-18 11:45 | Physician Discharge Referral ---
ExtendedCare Referral Info Transfer To: F Provider in Charge: Norma SIMMONS Provider in Charge after Transfer: Other ([facility] PHYSICIAN) Institutional Level of Care: Skilled - Diagnosis (1) Cellulitis of left knee Status: Acute (2) PAF (paroxysmal atrial fibrillation) Status: Chronic (3) On warfarin for atrial fibrillation Status: Chronic (4) HTN (hypertension) Status: Chronic (5) COPD (chronic obstructive pulmonary disease) Status: Chronic (6) Morbid obesity with BMI of 60.0-69.9, adult Status: Acute (7) Morbid obesity Status: Chronic - Transfer Medications Home Medications: Allopurinol [Zyloprim 300 MG] 300 mg PO DAILY 01/10/16 [History] Spironolactone [Aldactone] 50 mg PO DAILY 01/10/16 [History] Acetaminophen [Acetaminophen ER] 1,300 mg PO DAILY PRN 12/13/17 [History] Budesonide/Formoterol 160/4.5 [Symbicort 160/4.5] 2 puff IH BIDR 12/13/17 [ History] Buspirone HCl [Buspar] 15 mg PO BID 12/13/17 [History] Clotrimazole 1% CRM [Lotrimin 1%] 1 appl TP BID 12/13/17 [History] Docusate [Colace] 100 mg PO DAILY 12/13/17 [History] EPINEPHrine [Epipen] 0.3 mg IJ ONCE PRN 12/13/17 [History] Fluticasone Propionate Nasal [Flonase] 1 spray NS DAILY 12/13/17 [History] Furosemide [Lasix] 20 mg PO DAILY 12/13/17 [History] Gabapentin [Neurontin] 300 mg PO BID 12/13/17 [History] Loratadine [Allergy Relief] 10 mg PO DAILY 12/13/17 [History] Losartan/Hydrochlorothiazide [Losartan-Hctz 100-12.5 mg Tab] 1 tab PO DAILY [History] Montelukast [Singulair] 10 mg PO HS 12/13/17 [History] Ondansetron ODT [Zofran ODT] 4 mg SL Q6HR PRN 12/13/17 [History] Polyethylene Glycol 3350 [MiraLAX bowel prep] 17 g PO BID 12/13/17 [History] Pramipexole [Mirapex] 0.25 mg PO DAILY 12/13/17 [History] Tamsulosin [Flomax] 0.4 mg PO DAILY 12/13/17 [History] Warfarin [Coumadin] 6 mg PO MOTUWETHFR 12/13/17 [History] Warfarin [Coumadin] 7.5 mg PO SUSA 12/13/17 [History] Allergies/Adverse Reactions: 3 Allergy/AdvReac Type Severity Reaction Status Date / Time No Known Allergies Allergy Verified 01/10/16 08:18 - Respiratory Orders None Smoking Cessation: Smoking cessation has been advised. For more information, call the [place] Tobacco Quit Line at 5-835-PYEO-NOW. - Mobility Orders Ambulate - Rehabiliation Orders Rehab Potential: Fair - Diet Orders Cardiac CERTIFICATION: I certify that the transfer of the above named patient to an Extended Care Facility is necessary for the continuing treatment of the diagnosis listed. The above information is true and accurate reflection of patient's current condition. Confidential - Redisclosure prohibited without a patient's written consent.
[2017-12-18 12:01] VITALS: BP 144/74
[2017-12-18] MEDS: Fluticasone Propionate Nasal 50 MCG/SPRAY BOTTLE NS SCH (12:02)
[2017-12-18] MEDS: Clotrimazole 1% CRM 15 GM TUBE TP SCH (12:02)
[2017-12-18] MEDS ORDERED: *HR* Warfarin 3 MG TABLET PO SCH (18:00)
== END 2017-12-18 12:37 | DRG 603 ==
LOC: 3NENU → SUATTDRO 12-16 17:58
PROVIDERS: ADMIT Internal Medicine; ATTEND Internal Medicine

== ENCOUNTER 2020-09-06 19:29 | Inpatient (IN) ==
[2020-09-06] MEDS ORDERED: Melatonin 3 MG TABLET PO PRN (23:58)
[2020-09-06] MEDS ORDERED: Ondansetron ODT 4 MG TAB.RAPDIS SL PRN (23:58)
[2020-09-06] MEDS ORDERED: Naloxone 0.4 MG/ML INJ IVP PRN (23:58)
[2020-09-07] MEDS ORDERED: *HR* Dextrose 50 % in Water (Vial) 50 ML VIAL IVP PRN (01:02)
[2020-09-07] MEDS ORDERED: Dextrose Gel 15 GM/37.5 ML TUBE PO PRN ×2 (01:02)
[2020-09-07] MEDS ORDERED: D5% in Water 1,000 ML IVC PRN (01:02)
[2020-09-07] MEDS ORDERED: 0.9 % Sodium Chloride 1,000 ML IVC ONE (01:09)
[2020-09-07] MEDS ORDERED: Acetaminophen 325 MG TABLET PO PRN (01:11)
[2020-09-07] MEDS ORDERED: *HR* HYDROcodone/Acet 5/325 mg TABLET PO PRN (01:11)
[2020-09-07] MEDS: Insulin LISPRO 300 UNITS/3 ML VIAL SUBQ SCH ×4 (01:14→21:41)
[2020-09-07 01:48] LABS: Basophils % 0.1 %; Eosinophils # 0.3 K/mcL (0.0-0.6); Eosinophils % 4.9 %; Hematocrit 32.5 % (37.5-50.1); Hemoglobin 10.2 g/dL (12.9-16.9); Immature Granulocytes % 1.2 % (0-4); Lymphocytes # 1.5 K/mcL (0.6-4.6); Lymphocytes % 22.6 %; Mean Corpuscular HGB Conc 31.4 g/dL (31.6-35.5); Mean Corpuscular Hemoglobin 25.6 pg (28.0-33.3); Mean Corpuscular Volume 81.5 fL (83.0-100.0); Mean Platelet Volume 9.3 fL (9.4-12.4); Monocytes # 0.5 K/mcL (0.0-1.3); Monocytes % 7.2 %; Neutrophils # 4.3 K/mcL (1.6-8.9); Platelet Count 184 K/mcL (140-400); Red Blood Count 3.99 M/mcL (4.19-5.50); Red Cell Distribution Width 15.3 % (11.5-14.5); White Blood Count 6.8 K/mcL (4.3-11.1)
[2020-09-07 02:09] LABS: Alanine Aminotransferase 10 Units/L (7-52); Albumin 3.4 g/dL (3.5-5.7); Albumin/Globulin Ratio 1.4 (1.1-2.2); Alkaline Phosphatase 73 Units/L (34-104); Aspartate Amino Transferase 10 Units/L (13-39); BUN/Creatinine Ratio 23 (6-26); Bilirubin,Total 0.3 mg/dL (0.3-1.0); Blood Urea Nitrogen 27 mg/dL (6-20); Calcium 8.3 mg/dL (8.6-10.3); Carbon Dioxide 26 mEq/L (23-29); Chloride 100 mEq/L (98-107); Globulin 2.5 g/dL (2.4-3.5); Glucose 315 mg/dL (70-105); Osmolality,Calculated 297 (280-300); Potassium 3.4 mEq/L (3.5-5.1); Sodium 135 mEq/L (136-145); Total Protein 5.9 g/dL (6.4-8.9); eGFR For African Americans > 60 (> 60); eGFR For Non-African Americans > 60 (> 60)
[2020-09-07] MEDS ORDERED: Vancomycin 2,000 MG/520 ML IV.SOLN IVPB SCH (03:00)
[2020-09-07] MEDS ORDERED: *HR* Heparin 5,000 UNIT/ML VIAL SQ SCH (06:00)
[2020-09-07] MEDS: Piperacillin/Tazobactam 3.375 GM in 0.9 % Sodium Chloride Mini Bag 100 ML IVP SCH ×2 (09:25→16:58)
[2020-09-07 12:00] LABS: INR 1.2; Prothrombin Time 13.9 Seconds (9.4-12.1)
[2020-09-07] MEDS: *HR* Enoxaparin 150 MG/ML SYRINGE SQ SCH (16:55)
[2020-09-07] MEDS ORDERED: Warfarin perPT PO PRN (18:00)
[2020-09-07] MEDS ORDERED: *HR* Warfarin 5 MG TABLET PO ONE (18:00)
[2020-09-07] MEDS: Insulin DETEMIR 100 UNIT/ML X5UNITS SUBQ SCH (20:55)
[2020-09-08] MEDS: Piperacillin/Tazobactam 3.375 GM in 0.9 % Sodium Chloride Mini Bag 100 ML IVP SCH ×4 (00:47→23:25)
[2020-09-08] MEDS: Vancomycin 2,000 MG/520 ML IV.SOLN IVPB SCH (05:14)
[2020-09-08] MEDS: *HR* Enoxaparin 150 MG/ML SYRINGE SQ SCH (05:23)
[2020-09-08 05:42] LABS: Basophils % 0.6 %; Eosinophils # 0.3 K/mcL (0.0-0.6); Eosinophils % 5.1 %; Hematocrit 25.6 % (37.5-50.1); Immature Granulocytes % 0.9 % (0-4); Lymphocytes # 1.5 K/mcL (0.6-4.6); Lymphocytes % 28.4 %; Mean Corpuscular HGB Conc 30.5 g/dL (31.6-35.5); Mean Corpuscular Volume 85.3 fL (83.0-100.0); Mean Platelet Volume 10.3 fL (9.4-12.4); Monocytes # 0.4 K/mcL (0.0-1.3); Monocytes % 6.6 %; Neutrophils # 3.1 K/mcL (1.6-8.9); Platelet Count 124 K/mcL (140-400); Red Cell Distribution Width 15.4 % (11.5-14.5); Segmented Neutrophils % 58.4 %; White Blood Count 5.3 K/mcL (4.3-11.1)
[2020-09-08 05:43] LABS: Hemoglobin 7.8 g/dL (12.9-16.9)
[2020-09-08 06:38] LABS: INR 1.2; Prothrombin Time 13.5 Seconds (9.4-12.1)
[2020-09-08 07:28] LABS: % Iron Saturation 15 % (20-55); BUN/Creatinine Ratio 17 (6-26); Blood Urea Nitrogen 16 mg/dL (6-20); Calcium 8.7 mg/dL (8.6-10.3); Carbon Dioxide 25 mEq/L (23-29); Chloride 104 mEq/L (98-107); Glucose 198 mg/dL (70-105); Iron 43 mcg/dL (65-175); Magnesium 1.8 mg/dL (1.6-2.6); Osmolality,Calculated 291 (280-300); Phosphorous 2.8 mg/dL (2.7-4.5); Potassium 3.6 mEq/L (3.5-5.1); Sodium 137 mEq/L (136-145); Transferrin 211 mg/dL (203-362); eGFR For African Americans > 60 (> 60); eGFR For Non-African Americans > 60 (> 60)
[2020-09-08 07:45] LABS: Ferritin 61 ng/mL (20-250)
[2020-09-08] MEDS: Insulin LISPRO 300 UNITS/3 ML VIAL SUBQ SCH ×3 (07:46→17:26)
[2020-09-08] MEDS: Pantoprazole 40 MG VIAL IVP SCH ×2 (09:59→17:26)
[2020-09-08 16:33] LABS: Influenza A PCR Negative (Negative); Influenza B PCR Negative (Negative); Resp. Syncytial Virus PCR Negative (Negative); SARS-CoV-2 by PCR (In House) Negative (Negative)
[2020-09-08] MEDS ORDERED: SODIUM CHLORIDE/NAHCO3/KCL/PEG 4,000 ML SOLN.RECON PO ONE (17:00)
[2020-09-08] MEDS: Insulin DETEMIR 100 UNIT/ML X5UNITS SUBQ SCH (21:30)
[2020-09-09 04:27] LABS: Basophils % 0.5 %; Eosinophils # 0.3 K/mcL (0.0-0.6); Hematocrit 31.7 % (37.5-50.1); Immature Granulocytes % 0.9 % (0-4); Lymphocytes # 1.3 K/mcL (0.6-4.6); Mean Corpuscular HGB Conc 32.2 g/dL (31.6-35.5); Mean Corpuscular Hemoglobin 26.7 pg (28.0-33.3); Mean Platelet Volume 9.5 fL (9.4-12.4); Monocytes # 0.4 K/mcL (0.0-1.3); Monocytes % 6.5 %; Neutrophils # 4.4 K/mcL (1.6-8.9); Platelet Count 183 K/mcL (140-400); Red Blood Count 3.82 M/mcL (4.19-5.50); Red Cell Distribution Width 15.4 % (11.5-14.5); Segmented Neutrophils % 67.1 %; White Blood Count 6.6 K/mcL (4.3-11.1)
[2020-09-09 04:29] LABS: Hemoglobin 10.2 g/dL (12.9-16.9)
[2020-09-09 04:34] LABS: INR 1.2
[2020-09-09] MEDS: Pantoprazole 40 MG VIAL IVP SCH (04:40)
[2020-09-09] MEDS: Vancomycin 2,000 MG/520 ML IV.SOLN IVPB SCH (04:41)
[2020-09-09 04:48] LABS: BUN/Creatinine Ratio 9 (6-26); Blood Urea Nitrogen 9 mg/dL (6-20); Calcium 8.5 mg/dL (8.6-10.3); Carbon Dioxide 26 mEq/L (23-29); Chloride 107 mEq/L (98-107); Glucose 146 mg/dL (70-105); Magnesium 1.8 mg/dL (1.6-2.6); Osmolality,Calculated 287 (280-300); Phosphorous 2.8 mg/dL (2.7-4.5); Potassium 3.7 mEq/L (3.5-5.1); Sodium 138 mEq/L (136-145); eGFR For African Americans > 60 (> 60); eGFR For Non-African Americans > 60 (> 60)
[2020-09-09] MEDS: Insulin LISPRO 300 UNITS/3 ML VIAL SUBQ SCH ×3 (07:39→17:19)
[2020-09-09] MEDS: Piperacillin/Tazobactam 3.375 GM in 0.9 % Sodium Chloride Mini Bag 100 ML IVP SCH (07:57)
[2020-09-09] MEDS ORDERED: Sulfamethoxazole/Trimeth DS 1 EACH TABLET PO SCH (12:30)
[2020-09-09] MEDS ORDERED: Lidocaine -MPF 2% 2 ML VIAL ONE (13:31)
[2020-09-09] MEDS ORDERED: Ondansetron 4 MG/2 ML VIAL ONE (13:31)
[2020-09-09] MEDS ORDERED: *HR* Propofol 200 MG/20 ML VIAL IVP ONE (13:31)
[2020-09-09] MEDS ORDERED: *HR* Succinylcholine 200 MG/10 ML VIAL IVP ONE ×2 (13:31→14:06)
[2020-09-09] MEDS ORDERED: *HR* PHENYLEPHRINE 1,000 MCG/10 ML SYRINGE IVP ONE (13:32)
[2020-09-09] MEDS ORDERED: 0.9 % Sodium Chloride 1,000 ML IVC SCH (14:00)
[2020-09-09] MEDS ORDERED: hydrOXYzine pamoate 25 MG CAPSULE PO PRN (14:49)
[2020-09-09] MEDS ORDERED: Vancomycin 1,750 MG/517.5 ML IV.SOLN IVPB SCH (17:00)
[2020-09-09] MEDS: Sulfamethoxazole/Trimeth DS 1 EACH TABLET PO SCH (17:04)
[2020-09-09] MEDS: Bumetanide 1 MG TABLET PO SCH (17:15)
[2020-09-09] MEDS: Gabapentin 400 MG CAPSULE PO SCH ×2 (17:15→20:42)
[2020-09-09] MEDS ORDERED: *HR* Warfarin 5 MG TABLET PO ONE (18:00)
[2020-09-09] MEDS: Budesonide/Formoterol 160/4.5 1 PUFF INH IH SCH (20:06)
[2020-09-09] MEDS: Insulin DETEMIR 100 UNIT/ML X5UNITS SUBQ SCH (20:43)
[2020-09-10 01:52] LABS: Basophils % 0.3 %; Eosinophils # 0.3 K/mcL (0.0-0.6); Eosinophils % 3.1 %; Hematocrit 33.5 % (37.5-50.1); Hemoglobin 10.6 g/dL (12.9-16.9); Immature Granulocytes % 1.3 % (0-4); Lymphocytes # 1.7 K/mcL (0.6-4.6); Lymphocytes % 21.2 %; Mean Corpuscular HGB Conc 31.6 g/dL (31.6-35.5); Mean Corpuscular Hemoglobin 25.9 pg (28.0-33.3); Mean Corpuscular Volume 81.9 fL (83.0-100.0); Mean Platelet Volume 9.3 fL (9.4-12.4); Monocytes # 0.5 K/mcL (0.0-1.3); Monocytes % 6.7 %; Neutrophils # 5.4 K/mcL (1.6-8.9); Platelet Count 221 K/mcL (140-400); Red Blood Count 4.09 M/mcL (4.19-5.50); Red Cell Distribution Width 15.9 % (11.5-14.5); Segmented Neutrophils % 67.4 %; White Blood Count 7.9 K/mcL (4.3-11.1)
[2020-09-10 02:13] LABS: INR 1.3; Prothrombin Time 14.6 Seconds (9.4-12.1)
[2020-09-10 02:32] LABS: BUN/Creatinine Ratio 9 (6-26); Blood Urea Nitrogen 9 mg/dL (6-20); Calcium 8.5 mg/dL (8.6-10.3); Carbon Dioxide 25 mEq/L (23-29); Chloride 103 mEq/L (98-107); Glucose 181 mg/dL (70-105); Magnesium 1.8 mg/dL (1.6-2.6); Osmolality,Calculated 289 (280-300); Phosphorous 3.3 mg/dL (2.7-4.5); Potassium 3.3 mEq/L (3.5-5.1); Sodium 138 mEq/L (136-145); eGFR For African Americans > 60 (> 60); eGFR For Non-African Americans > 60 (> 60)
[2020-09-10] MEDS ORDERED: Vancomycin 1,250 MG/262.5 ML IV.SOLN IVPB SCH (05:00)
[2020-09-10] MEDS: Sulfamethoxazole/Trimeth DS 1 EACH TABLET PO SCH (05:41)
[2020-09-10] MEDS: Budesonide/Formoterol 160/4.5 1 PUFF INH IH SCH (07:41)
[2020-09-10] MEDS: Gabapentin 400 MG CAPSULE PO SCH ×2 (07:45→16:25)
[2020-09-10] MEDS: Bumetanide 1 MG TABLET PO SCH (07:46)
[2020-09-10] MEDS: Insulin LISPRO 300 UNITS/3 ML VIAL SUBQ SCH ×3 (08:03→17:46)
[2020-09-10] MEDS ORDERED: allopurinoL 300 MG TABLET PO SCH (09:00)
[2020-09-10] MEDS ORDERED: Aspirin Enteric Coated 81 MG Tablet PO SCH (09:00)
[2020-09-10] MEDS ORDERED: Doxycycline 100 MG CAPSULE PO SCH (09:00)
[2020-09-10 10:53] VITALS: BP 110/72
[2020-09-10 12:36] LABS: Influenza A PCR Negative (Negative); Influenza B PCR Negative (Negative); Resp. Syncytial Virus PCR Negative (Negative)
[2020-09-10 13:06] LABS: SARS-CoV-2 by PCR (In House) Negative (Negative)
[2020-09-10] MEDS ORDERED: *HR* Warfarin 5 MG TABLET PO ONE (18:00)
== END 2020-09-10 17:40 | DRG 872 ==
LOC: 3ANU → SUATTDRO 22:29
PROVIDERS: ADMIT Internal Medicine; ATTEND Student in an Organized Health Care Education/Training Program